=== PATIENT | female | born 1950 | race Caucasian/White ===

== ENCOUNTER 2016-04-23 11:43 | Emergency (ER) | payer OTHER ==
[~2016-04-23] VITALS: Wt 65.0 kg
[2016-04-23] MEDS ORDERED: BISACODYL 10 MG SUPP PR ONE (13:00)
[2016-04-23 13:49] LABS: BASOPHILS % 0.3 % (0.0-2.0); EOSINOPHILS # 0.3 10^3/ul (0.0-0.5); EOSINOPHILS % 2.7 % (0.0-7.0); HEMATOCRIT 44.2 % (37.0-47.0); LYMPHOCYTES # 4.1 10^3/ul (0.8-2.9); LYMPHOCYTES % 36.9 % (15.0-51.0); MEAN CORPUSCULAR HEMOGLOBIN 30.5 pg (29.0-33.0); MEAN CORPUSCULAR HGB CONC 33.9 g/dl (32.0-37.0); MEAN PLATELET VOLUME 9.4 fl (7.4-10.4); MONOCYTE # 0.4 10^3/ul (0.3-0.9); NEUTROPHIL # 6.2 10^3/ul (1.6-7.5); NEUTROPHILS % 56.1 % (39.0-77.0); PLATELET COUNT 221 10^3/UL (140-440); RED BLOOD COUNT 4.92 10^6/ul (4.20-5.40); UNCORRECTED WBC 11.1 10^3/ul (4.8-10.8); WHITE BLOOD COUNT 11.1 10^3/ul (4.8-10.8)
[2016-04-23 14:00] LABS: CONDITION 1
[2016-04-23] MEDS ORDERED: DOCU-144 PO (14:10)
--- NOTE | 2016-04-23 14:13 | ERD ---
ER Documentation Chief Complaint Date/Time DATE: 04/23/16 TIME: 14:11 Chief Complaint RECTAL PAIN WITH CONSTIPATION FOR THE PAST 2 DAYS. HPI This 65-year-old female presents with history of constipation with some rectal bleed noticed today. She has no current bleeding. She has a very small amount of blood with the second bowel movement today. She usually does not have constipation. She denies fevers, vomiting, abdominal pain. ROS All systems reviewed and are negative except as per history of present illness. Medications Home Meds Active Scripts Docusate Sodium* (Colace*) 100 Mg Capsule, 100 MG PO BID, #30 CAP Prov:RUBIA RIVERA MD 04/23/16 PMhx/Soc Hx Cardiac Disorders: Yes (HNT) Hx Alcohol Use: No Hx Substance Use: No Hx Tobacco Use: No Physical Exam Vitals Vital Signs Date Time Temp Pulse Resp B/P Pulse Ox O2 Delivery O2 Flow Rate FiO2 04/23/16 11:51 98.4 76 20 131/62 97 Physical Exam Const: [] Head: Atraumatic Eyes: Normal Conjunctiva ENT: Normal External Ears, Nose and Mouth. Neck: Full range of motion..~ No meningismus. Resp: Clear to auscultation bilaterally Cardio: Regular rate and rhythm, no murmurs Abd: Soft, non tender, non distended. Normal bowel sounds. Rectal exam elicits of a exhibit builder shows no gross blood or melanotic stools. There is no appreciable masses and no stool in the vault appreciated. Skin: No petechiae or rashes Back: No midline or flank tenderness Ext: No cyanosis, or edema Neur: Awake and alert Psych: Normal Mood and Affect Result Diagram: 04/23/16 1335 Results 24 hrs Laboratory Tests Test 04/23/16 13:35 Basophils # 0.010^3/ul Basophils % 0.3% Eosinophils # 0.310^3/ul Eosinophils % 2.7% Hematocrit 44.2% Hemoglobin 15.0g/dl Lymphocytes # 4.110^3/ul Lymphocytes % 36.9% Mean Corpuscular Hemoglobin 30.5pg Mean Corpuscular Hemoglobin Concent 33.9g/dl Mean Corpuscular Volume 90.0fl Mean Platelet Volume 9.4fl Monocytes # 0.410^3/ul Monocytes % 4.0% Neutrophils # 6.210^3/ul Neutrophils % 56.1% Nucleated Red Blood Cells # 0.010^3/ul Nucleated Red Blood Cells % 0.0/100WBC Platelet Count 96308^3/UL Red Blood Count 4.9210^6/ul Red Cell Distribution Width 14.0% White Blood Count 11.110^3/ul Current Medications Medications (Trade) Dose Ordered Sig/Judith Route PRN Reason Start Time Stop Time Status Last Admin Dose Admin Bisacodyl (Dulcolax Supp) 10 mg ONCE ONCE SD 04/23/16 13:00 04/23/16 13:01 DC 04/23/16 12:57 Procedures/MDM Patient presents with history episode of bright red blood per rectum this morning associated with a hard stool. There is no evidence of anemia, acute abdomen, active bleeding and patient currently stable for outpatient management. Patient was treated for staple rectal bleeding, possibly due to hemorrhoids, constipation and instructions to follow-up with the gastroenterology for further evaluation and treatment. A Dulcolax suppositories placed during rectal exam. Patient was advised to return for recurrent bleeding, dizziness, chest pain, shortness breath, fevers, new or worsening symptoms. Departure Diagnosis: Primary Impression: Rectal bleed Additional Impression: Constipation Constipation type: unspecified constipation type Qualified Code: K59.00 - Constipation, unspecified constipation type Condition: Stable Patient Instructions: Constipation (Adult), Rectal Bleed, Stable Referrals: BIANCA DAY MD, SALEEM A MD JOGANI, PIYUSH K MD Additional Instructions: Labs normal today. See gastroenterology or primary doctor for further evaluation. Return for worsening bleeding, pain, new symptoms. RUBIA RIVERA MD Apr 23, 2016 14:13
== END 2016-04-23 15:13 | disposition home or self-care (01) ==
LOC: FTE 11:43
DX: K62.5 Hemorrhage of anus and rectum (principal); K59.00 Constipation, unspecified; I10 Essential (primary) hypertension
CPT/HCPCS: 85025; 99283